=== PATIENT | male | born 1940 | race Caucasian/White ===

== ENCOUNTER 2023-11-16 09:57 | Emergency (ER) | payer OTHER, SELFPAY ==
[2023-11-16 10:18] VITALS: BP 144/63
--- NOTE | 2023-11-16 11:11 | ED.MUSCINJ ---
HPI-Injury
General
Chief Complaint: Fall
Source: patient
Exam Limitations: none
Time Seen by Provider: 11/16/23 11:03
History of Present Illness-Injury
Initial Injury comments:
83-year-old male on aspirin presents after a fall he sustained 3 days ago. He got knocked over by the dog fell awkwardly. His right ankle twisted. He complains of pain and swelling to the ankle and radiates up to the knee. He did hit his head.
No neck pain. No current headache. No loss of consciousness.
Past History
Past History
ED Past Medical History: Asthma, CAD, Cancer (Bladder), HTN, IDDM, [place], Hypothyroidism and Other (Diverticulitis)
ED Past Surgical History: Cardiac (Stent) and Other (Hernia repair, bowel resection)
Social History
Tobacco: Former smoker
Alcohol: Occasional
Drug: None
Personal:
Living: with family
Employment: Retired
Family History
Family History: Other; Negative Early CAD
Phy Exam
Physical Exam
Physical Exam:
General: Well-appearing male no acute respiratory distress
HEENT: Normocephalic atraumatic
Musculoskeletal exam: Right ankle swollen ecchymotic and tender over the medial and lateral aspect of the ankle. The knee is nontender.
Neurologic exam: Alert and no facial asymmetry conversing appropriately
Injury Course
Orders/Labs/Results
Orders:
Orders
11/16/23 10:32
CT Head W/o Iv Contrast Urgent
Comment:
Reason For Exam: Head injury
11/16/23 11:11
CR Ankle - Right Min 3 Views * Urgent
Comment:
Reason For Exam: fall, pain
CR Leg Tibia/fibula Right 2 Vw Urgent
Comment:
Reason For Exam: fall
MDM/Problems Addressed
Differential Diagnosis Includes:
Fall hitting head. CT of head pending to evaluate for skull fracture or intracranial hemorrhage. Pain to the right ankle. Consider fracture versus sprain versus dislocation by x-ray of the right ankle and leg pending
*Critical Care Note
Total Time (30-74mins, 75-104mins- exclusive of procedures): Not Applicable
Update Note
Update Note:
X-rays of the right ankle and leg demonstrated nondisplaced distal fibular fracture. Patient will be placed in a tall orthopedic boot and will be referred to orthopedics for further evaluation
ED Attending Note
-
Portions of this chart may have been created with voice recognition software.� Occasional wrong word or��sound alike� substitutions may have occurred due to the inherent limitations of voice recognition software.
Discharge Plan
Departure
Patient Disposition: Home (Routine Discharge)
Date of Disposition: 11/16/23
Time of Disposition: 12:56
Patient with high blood pressure during this ER visit?: No
Discharge Problem:
Fracture of distal end of fibula
Instructions: Muscle and bone pain - Discharge instructions
Prescriptions:
No Action
furosemide 40 MG tablet
40 mg PO DAILY
albuterol sulfate 1 PUFF HFA aerosol inhaler
2 puff inhalation R QIDPRN PRN (Reason: sob)
atorvastatin 20 MG tablet
60 mg PO HS
montelukast 10 MG tablet
10 mg PO HS
cholecalciferol (vitamin D3) 2,000 UNITS tablet
2,000 units PO DAILY
azithromycin 250 MG tablet
250 mg PO MOWEFR
levothyroxine 125 MCG tablet
125 mcg PO MOTUWETHFR@06
nitroglycerin 0.4 MG tablet, sublingual
0.4 mg sublingual [id number] PRN (Reason: chest pain)
pantoprazole 40 MG tablet,delayed release (DR/EC)
40 mg PO DAILY
amlodipine 5 mg Tablet
5 mg PO HS
aspirin 81 mg Capsule
81 mg PO DAILY
prednisone 5 MG tablet
5 mg PO Q48H
Rx Instructions:
resume the day after taper is finished
fluticasone propion-salmeterol 500-50 mcg/dose blister with device
1 inh INHALATION R BID
potassium chloride 10 mEq tablet extended release
10 meq PO BID
ranolazine 500 mg tablet extended release 12 hr
1,000 mg PO BID
isosorbide mononitrate 120 mg tablet extended release 24 hr
120 mg PO DAILY
Referrals:
Russ Pinzon MD [Active] -
Myke Nelson DO [Family Provider] -
Activity Restrictions/Additional Instructions:
Keep boot on at all times. Elevate for swelling. Use Tylenol for pain. Follow-up with orthopedics next fillable appointment
Interventions
Interventions:
ED-Musculoskeletal Assessment Last Done: 11/16/23 11:10
ED- Neurological Assessment Last Done: 11/16/23 11:10
Discharge Date and Time
Print Language: WOLOF
== END 2023-11-16 13:47 | disposition home or self-care (01) ==
LOC: EMR 09:57
PROVIDERS: EMERGENCY PHYSICIAN Emergency Medicine; FAMILY PHYSICIAN Family Medicine
DX: S82.831A Other fracture of upper and lower end of right fibula, initial encounter for closed fracture (principal); W54.1XXA Struck by dog, initial encounter; W19.XXXA Unspecified fall, initial encounter; E03.9 Hypothyroidism, unspecified; E11.9 Type 2 diabetes mellitus without complications; I25.10 Atherosclerotic heart disease of native coronary artery without angina pectoris; J45.909 Unspecified asthma, uncomplicated; I10 Essential (primary) hypertension; Z87.891 Personal history of nicotine dependence; Z95.5 Presence of coronary angioplasty implant and graft; Z79.4 Long term (current) use of insulin
CPT/HCPCS: 99284; 70450; 73590; 73610

== ENCOUNTER 2024-01-28 01:27 | Inpatient (IN) | payer OTHER, SELFPAY ==
[2024-01-27] VITALS (7 sets, daily range): BP systolic 117–162; BP diastolic 53–96
[2024-01-27] MEDS: NSS 1000 IV (19:45)
[2024-01-27 20:15] LABS: % Basophils 0.3 % (0-2); % Immature Granulocytes 0.6 % (0-0.5); % Lymphocytes 7.3 % (20.5-51.1); % Monocytes 10.1 % (1.7-9.3); % Neutrophils 80.7 % (42.2-75.2); Absolute Eosinophils 0.1 10^3/uL (0-0.7); Absolute Immature Granulocytes 0.1 10^3/uL (0-0.05); Absolute Lymphocytes 0.9 10^3/uL (1.2-3.4); Absolute Monocytes 1.3 10^3/uL (0.1-0.6); Absolute Neutrophils 10.1 10^3/uL (1.4-6.5); Hematocrit 33.3 % (39.0-52.0); Hemoglobin 11.6 g/dL (13.0-18.0); Mean Corp Hgb Conc. 34.8 g/dL (33.0-37.0); Mean Corpuscular Hgb 32.2 pg (27.0-31.0); Mean Corpuscular Volume 92.5 fL (80.0-94.0); Mean Platelet Volume 8.9 fL (7.4-10.4); Nucleated Red Blood Cells % 0 % (-); Platelet Count 224 10^3/uL (130-400); Red Cell Dist. Width 14.6 % (11.5-14.5); White Blood Cell Count 12.5 10^3/uL (4.8-10.8)
[2024-01-27 20:28] LABS: ALT (SGPT) 38 U/L (0-50); AST (SGOT) 35 U/L (17-59); Albumin 3.4 g/dl (3.5-5.0); Alkaline Phosphatase 75 U/L (38-126); Blood Urea Nitrogen 16 mg/dl (9-20); Calcium 8.8 mg/dl (8.4-10.2); Carbon Dioxide 24 mmol/L (22-30); Chloride 93 mmol/L (98-107); Glucose 168 mg/dl (70-99); Potassium 4.2 mmol/L (3.5-5.1); Sodium 129 mmol/L (135-145); Total Bilirubin 1.2 mg/dl (0.2-1.3); Total Protein 6.5 g/dl (6.3-8.2); eGFR > 60.00
[2024-01-27 20:30] LABS: COVID-19 Antigen Negative (Negative)
[2024-01-27 20:36] LABS: NT-proBNP 2100 pg/ml
[2024-01-27 22:30] LABS: Urine Albumin Trace (Neg - Trace); Urine Bilirubin 1+ (Negative); Urine Color Yellow; Urine Glucose Negative (Negative); Urine Ketone Negative (Negative); Urine Leukocyte Trace (Negative); Urine Nitrite Negative (Negative); Urine Occult Blood Trace (Negative); Urine Urobilinogen 3+ (Neg - 1+)
--- NOTE | 2024-01-27 22:40 | ED.GENMED ---
History of Present Illness
General
Chief Complaint: Weakness
Source: patient
Exam Limitations: none
Time Seen by Provider: 01/27/24 19:53
Nursing documentation reviewed up to this point in time: agreed with
History of Present Illness
History of Present Illness:
Patient to ED with complaint of weakness. States he started feeling weak yesterday. Slept most of day. Reports loss of appetite. Symptoms continued today. He reports sliding off of his bed onto the floor. Denies hitting his head. Brought to
ED by family.
Past History
Past History
ED Past Medical History: Asthma, CAD, Cancer (Bladder), HTN, IDDM, [place], Hypothyroidism and Other (Diverticulitis)
ED Past Surgical History: Cardiac (Stent) and Other (Hernia repair, bowel resection)
Social History
Tobacco: Former smoker
Alcohol: Occasional
Drug: None
Personal:
Living: with family
Employment: Retired
Family History
Family History: Other; Negative Early CAD
Review of Systems
Review of Systems
Allergies reviewed?: Yes
All Other Systems: ROS reviewed and negative except as documented in HPI and ROS
Constitutional: Reports fatigue and chills
Respiratory: Reports cough and trouble breathing
Cardiac: Reports no symptoms
ABD/GI: Reports no symptoms
: Reports no symptoms
Musculoskeletal: Reports no symptoms
Skin: Reports no symptoms
Neurological: Reports weakness
Psychiatric: Reports no symptoms
Phy Exam
General Physical Exam
General Presentation: mild distress
General age: appears stated age
General Skin: warm and dry
General Habitus: normal
General Mental: alert
Cardiovascular Exam
Cardiovascular Exam: regular rate/rhythm and no edema
Pulmonary Exam
Cough: coarse cough
Breath Sounds: Rhonchi: generalized
Gastrointestinal Exam
Gastrointestinal Exam: normal bowel sounds and non tender
Musculoskeletal Exam
Musculoskeletal Exam: full ROM and neuro vasc intact
Skin Exam
Skin Exam: normal color, warm/dry and no rash
Psychiatric Exam
Psychiatric Exam: normal mood/affect
Course
Orders/Labs/Results
Orders:
Orders
01/27/24 20:03
COVID-19 Antigen Urgent
Source: Nasal Swab
Complete Blood Count/With Diff Urgent
Comprehensive Metabolic Panel Urgent
Influenza A+B Rapid Molecular Urgent
BILLIE Source: Nasal Swab
Specimen Description:
01/27/24 20:04
BNP [NT-proBNP] Urgent
01/27/24 20:32
CR Chest - 2 Views Urgent
Comment:
Reason For Exam: productive cough, weakness
01/27/24 21:11
0.9% Sodium Chloride 1000 ml [Nss] 1,000 ml IV BOLUS
01/27/24 22:20
Urinalysis Reflex To Culture Urgent
Date Specimen was Collected: 01/27/24
Time Specimen was Collected: 20:33
Urine Microscopic Reflex Cult Urgent
01/27/24 22:46
Azithromycin [Zithromax] 500 mg PO NOW STA
CefTRIAXone [Rocephin] 1,000 mg IV NOW STA
01/28/24 00:12
Admit/Transfer Patient As Directed
Co-Sign Provider:
Level of Care: Inpatient admission
Assign to:: Medical/Surgical
Physician / Group: hospitalist
Diagnosis: communicty acquired pneumonia
Reason for Hospitalization: pneumonia
Expected length of stay greater than two midnights?: Yes
ELOS- Estimated Length of Stay in days: 2
I certify the patient meets the requirements for IP care: Yes
PRN Pain Medication Management As Directed
May give lesser potent ordered pain med per pt: Yes
preference::
Protocol:: Medication orders for pain may be administered in a
manner that supports deferring to patient preference
when the pt is:
- Requesting an ordered lesser potent pain medication.
Least to most potent pain medications are defined
as: acetaminophen < NSAID < tramadol < opioids
(morphine, oxycodone, hydromorphone).
- Requesting a lesser dose of the same medication IF
ORDERED.
- Requesting a less intrusive route of administration
if both routes are prescribed by the provider (PO <
IV).
01/28/24 00:13
Code Status As Directed
Resuscitation Status: Full Code
01/28/24 01:30
Acetaminophen [Tylenol] 650 mg PO Q4HPRN PRN
Albuterol [ProAIR HFA INHALER] 2 puff INH R QIDPRN PRN
01/28/24 01:30
Activity As Directed
Activity Level: Out of Bed-Early Mobility
Intake/ Output As Directed
Frequency: Per unit guidelines
Orthostatic Vital Signs As Directed
Orthostatic VS Frequency: Daily
Vital Signs As Directed
Frequency: Per unit guidelines
Weight As Directed
Frequency: Once
Comment: on admission
Pulse Ox/cont/shift [RESP] Routine
Quantity: 1
Pt Eval And Treat Routine
Activity Level: With Assistance
DX Deep Vein Thrombosis Video Routine
01/28/24 03:26
Legionella Urinary Antigen Routine
BILLIE Source: Urine
Specimen Description:
01/28/24 Breakfast
Regular
At Your Request: Limited Participation
Fluid Restriction: 1200 mL/day (40 oz)
Levothyroxine [Synthroid] 125 mcg PO MOTUWETHFR@06
01/28/24 06:37
Basic Metabolic Panel IN AM
Complete Blood Count/No Diff IN AM
TSH Reflex To Free T4 IN AM
01/28/24 08:00
Aspirin Chewable [Low Strength Aspirin] 81 mg PO DAILY
Fluticasone/Salmeterol 230/21 [Advair Hfa 230/21 Mcg Inhaler] 2 puff INH R BID
ISOSORBIDE MONOnitrate ER [Imdur (Extended Release)] 120 mg PO DAILY
Pantoprazole [Protonix] 40 mg PO DAILY
Ranolazine Extended Release [Ranexa Extended Release] 1,000 mg PO BID
01/28/24 18:00
Enoxaparin Sodium [Lovenox] 40 mg SC QPM
01/28/24 22:00
Amlodipine [Norvasc] 5 mg PO HS
Atorvastatin [Lipitor] 60 mg PO HS
Azithromycin [Zithromax] 500 mg PO DAILY
CefTRIAXone [Rocephin] 1,000 mg IV Q24H
Montelukast Sodium [Singulair] 10 mg PO HS
01/29/24 08:00
Prednisone [Deltasone] 5 mg PO Q48H
Abnormal Lab Results
01/27/24 01/27/24
20:03 22:20
WBC 12.5 H 10^3/uL
(4.8-10.8)
RBC 3.60 L 10^6/uL
(4.70-6.10)
Hgb 11.6 L g/dL
(13.0-18.0)
Hct 33.3 L %
(39.0-52.0)
MCH 32.2 H pg
(27.0-31.0)
RDW 14.6 H %
(11.5-14.5)
Abs Immat Gran (auto) 0.1 H 10^3/uL
(0-0.05)
Absolute Neuts (auto) 10.1 H 10^3/uL
(1.4-6.5)
Absolute Lymphs (auto) 0.9 L 10^3/uL
(1.2-3.4)
Absolute Monos (auto) 1.3 H 10^3/uL
(0.1-0.6)
Immature Gran % 0.6 H %
(0-0.5)
Neutrophils % 80.7 H %
(42.2-75.2)
Lymphocytes % 7.3 L %
(20.5-51.1)
Monocytes % 10.1 H %
(1.7-9.3)
Sodium 129 L mmol/L
(135-145)
Chloride 93 L mmol/L
(98-107)
Glucose 168 H mg/dl
(70-99)
Albumin 3.4 L g/dl
(3.5-5.0)
Ur Occult Blood Reflex Trace A
(Negative)
Urine Bilirubin 1+ A
(Negative)
Urine Urobilinogen 3+ A
(Neg - 1+)
Leukocyte Esterase Rfl Trace A
(Negative)
Urine RBC 21-25 A /HPF
(0-2)
Urine Bacteria (Reflex) Few A
(Negative)
01/27/24 20:03
01/27/24 20:03
Vital Signs
Initial and Last Documented VS:
Initial Vital Signs
Temp Pulse Resp BP Pulse Ox
98.2 F 103 20 145/65 99
01/27/24 19:41 01/27/24 19:41 01/27/24 19:41 01/27/24 19:41 01/27/24 19:41
Last Documented Vital Signs
Temp Pulse Resp BP Pulse Ox
98.0 F 72 18 132/66 96
01/28/24 14:42 01/28/24 14:42 01/28/24 14:42 01/28/24 14:42 01/28/24 14:42
*Radiology
Radiology exam reviewed: radiology read reviewed
*Pulse Oximetry
Patient hypoxic: no
*Critical Care Note
Total Time (30-74mins, 75-104mins- exclusive of procedures): Not Applicable
ED Attending Note
-
Portions of this chart may have been created with voice recognition software.� Occasional wrong word or��sound alike� substitutions may have occurred due to the inherent limitations of voice recognition software.
Discharge Plan
Departure
Patient Disposition: Admit
Date of Disposition: 01/27/24
Time of Disposition: 22:48
Presentation/result/management discussed w/ accepting MD/DO: Hospitalist
Condition: Fair
Covid-19: Not Applicable
Discharge Problem:
Pneumonia
Interventions
Interventions:
*Risk Screen - Suicide Last Done: 01/27/24 19:41
*General Assessment Last Done: 01/27/24 20:08
*Neglect/Abuse Screening Last Done: 01/27/24 19:41
ED- Fall Risk Assessment Last Done: 01/27/24 20:00
*ED COVID-19 Vaccine History Last Done: 01/27/24 20:08
*Nursing Disposition Last Done: 01/28/24 01:42
ED- Cardiac Assessment Last Done: 01/28/24 00:28
ED- Neurological Assessment Last Done: 01/28/24 00:28
ED- Pulmonary Assessment Last Done: 01/28/24 00:28
Discharge Date and Time
Discharge Date/Time: 01/28/24 01:44
[2024-01-27 22:45] LABS: Urine Bacteria Few (Negative); Urine Red Blood Cell 21-25 /HPF (0-2); Urine White Cell 0-2 /HPF (0-5)
[2024-01-27 22:50] LABS: Urine Character Clear (Clear)
[2024-01-27] MEDS: ZITHROMAX 500 MG PO (23:03)
[2024-01-27] MEDS: ROCEPHIN 1000 MG IV (23:04)
--- NOTE | 2024-01-27 23:59 | HPS.HSE ---
Family Physician
-
Family Physician: Myke Nelson
Chief Complaint
-
Weakness lethargy and cough
History of Present Illness
This is an 83-year-old male who has a past medical history that is significant for COPD, hypertension, CHF with preserved EF, status post pacemaker, CAD status post HI, asthma who presents to the emergency department with approximately 2 days of
somnolence lethargy weakness loss of appetite and a productive cough.
Patient actually stated that he had cough and some respiratory difficulties about a week ago after suffering a tib-fib fracture which resulted in decreased ambulatory capacity compared to prior.. He took some Mucinex for some time and resulted in
scant hemoptysis which she did not stop the Mucinex. He denies having fevers or chills. He denies any known sick contacts. He is on chronic suppressive azithromycin but is unclear to me whether it is for anti-inflammatory or antiinfectious use.
He reports ongoing productive cough. But mostly he reports weakness tiredness some lightheadedness and dizziness. He denies any nausea or vomiting. He denies having diarrhea. He has no recent travels. Denies sick contacts and denies any recent
hospitalizations.
On arrival in ED temperature was 90.2, blood pressure was 130/60, pulse was 79 and oxygen saturation was 97% on room air. His chest x-ray shows a large left lower lobe consolidation with parapneumonic effusion. Leukocytosis to 12,000 with normal
hemoglobin and platelet counts. Chemistries notable for sodium of 129 with normal BUN and creatinine. UA with blood but otherwise unremarkable. COVID test was negative. Influenza was negative.
Medical History
Past Medical History
Past Medical History: Reports Asthma, CAD (Status post HI and PCI), CHF (Preserved EF), HTN and Hypothyroidism
Past Surgical History: Reports Other
Social History
Tobacco: Former Smoker
Alcohol: None
Drug: None
Personal:
Living: With Family
Employment: Retired
Family History
Family History: Not pertinent
Allergies / Home Medications
Allergies reflects when Allergies were last updated in [email or web address].
Home Medications with original date entered in [email or web address]
Allergy/Medication List:
Allergies
Allergy/AdvReac Type Severity Reaction Status Date / Time
mold Allergy BREATHING/A Verified 01/27/24 19:44
STHMA
pollen extracts Allergy NASAL Verified 01/27/24 19:44
SYMPTOMS/BREATHING/ASTHMA
Home Medications
albuterol sulfate 90 mcg/actuation aerosol inhaler 2 puff inhalation R QIDPRN PRN sob 10/31/18
furosemide 40 mg tablet 40 mg PO DAILY Fluid retention/Swelling 10/31/18
atorvastatin 20 mg tablet 20 mg PO HS High cholesterol 08/29/19
azithromycin 250 mg tablet 250 mg PO MOWEFR Infection 08/29/19
levothyroxine 125 mcg tablet 125 mcg PO MOTUWETHFR@06 Thyroid 08/29/19
montelukast 10 mg tablet 10 mg PO HS Allergies 08/29/19
pantoprazole 40 mg tablet,delayed release 40 mg PO DAILY Gastrointestinal issue 10/31/19
amlodipine 5 mg tablet 5 mg PO HS Blood Pressure 02/19/22
aspirin 81 mg capsule 81 mg PO DAILY Blood Clot Prevention/Tx 02/19/22
fluticasone 500 mcg-salmeterol 50 mcg/dose blistr powdr for inhalation 1 inh inhalation R BID Lung/Breathing Issues 11/16/23
isosorbide mononitrate 120 mg tablet,extended release 24 hr 120 mg PO DAILY Blood Pressure 11/16/23
potassium chloride 10 mEq tablet,extended release 10 meq PO BID Electrolyte Repletion 11/16/23
ranolazine 500 mg tablet,extended release,12 hr 1,000 mg PO BID Heart Disease/Condition 11/16/23
atorvastatin 40 mg tablet 40 mg PO HS 01/27/24
cholecalciferol (vitamin D3) 50 mcg (2,000 unit) tablet 50 mcg PO DAILY 01/27/24
prednisone 10 mg tablet 5 mg PO Q48H 01/27/24
Review of Systems
-
Constitutional: Reports Fatigue
EENT: Reports No Symptoms
Respiratory: Reports Cough
Cardiac: Reports No Symptoms
Abdomen/GI: Reports No Symptoms
: Reports No Symptoms
Musculoskeletal: Reports No Symptoms
Skin: Reports No Symptoms
Neurological: Reports Dizzy and Weakness
Endocrine: Reports No Symptoms
Hematologic/Lymphatic: Reports No Symptoms
Psych: Reports No Symptoms
Physical Exam
Vital Signs
Vital Signs
Temp Pulse Resp BP Pulse Ox
98.2 F 79 20 162/56 97
01/27/24 19:41 01/27/24 22:45 01/27/24 22:45 01/27/24 22:00 01/27/24 22:45
Physical Exam
General: No Apparent Distress, Comfortable and Conversant
HEENT: NormoCephalic, Anicteric, Moist mucous membranes, Atraumatic and PERRLA
Respiratory: Wheezes and Crackles
Cardiac: S1/S2 and Regular Rhythm
Breast: Deferred by me
GI: Soft, Non Tender and Normal Bowel Sounds
Rectal: Deferred by Provider
Genito-urinary: Deferred by me
Musculoskeletal: No Clubbing, No Cyanosis and Edema, Left Lower Extremity (1+ ankle edema)
Skin: Warm
Neuro: AO x 3
Hematologic/Lymphatic: No Lymphadenopathy
Psych: Calm
Laboratory Results
-
01/27/24 20:03
01/27/24 20:03
Laboratory Results
Total Bilirubin 1.2 mg/dl (0.2-1.3) 01/27/24 20:03
AST 35 U/L (17-59) 01/27/24 20:03
ALT 38 U/L (0-50) 01/27/24 20:03
Alkaline Phosphatase 75 U/L (38-126) 01/27/24 20:03
Data Reviewed
-
Diagnostic Radiology: Image Personally Visualized and interpreted and Report Reviewed by me
Lab Data: Labs Reviewed by me
Old Records: Reviewed
Impression/Plan
-
IMPRESSION:
23-year-old with history of asthma, CHF with preserved EF, CAD status post PCI, hypothyroid, status post pacemaker who presents to the emergency department with 2 days of lethargy weakness and was found to have a left lower lobe consolidation with
prominent pneumonic effusion, leukocytosis and a low sodium of 139. He is afebrile hemodynamically stable and otherwise has no oxygen requirement. COVID test is negative. Influenza test negative suspect CAP vs atypical pneumonia at this time.
PLAN:
1.PNA - Complicated by parapneumonic effusion and lethargy
- admit to med/surg
- legionella ag
- IV ceftriaxone and azithromycin (was on azithromycin M/W/F at home)
- minimal respiratory compromise, continue his asthma regimen with duonebs, prednisone 5 q 48, singulair
- serial examination, ambulating sats to help determine degree of hypoxic contribution to weakness.
2. Hyponatremia - Moderate hyponatremia. PNA and on lasix. Poor PO. Looks dry on exam. No pulm edema. Chronic Left ankle 1+ edema.
- hold diuretics for now
- give 500 ml bolus and eval
- check tsh, continue levothyroxine
- orthostatic v/s
3. CAD
- continue aspirin, statin and imdur and ranolazine
4. CHF - dry on exam
- holding lasix for now
- continue imdur. Amlodipine with hold parameters
DVT PPX - lovenox sq
Code status - Full Code
[2024-01-28] VITALS: BP 132/52
[2024-01-28 01:29] VITALS: BMI 23.6
[2024-01-28 01:30] VITALS: BP 130/60
[2024-01-28 01:38] VITALS: BMI 23.6
--- NOTE | 2024-01-28 02:02 | PTCARENOTE ---
Received pt from ED @ 0130. Pt [id number], VSS. PT ambulated from stretcher to bed. Oriented to room, call oswald and plan of care.
[2024-01-28] MEDS: SYNTHROID 125 MCG PO (05:21)
[2024-01-28 05:35] VITALS: BMI 23.1
[2024-01-28 07:00] VITALS: BP 123/60
[2024-01-28 08:16] LABS: Hematocrit 29.9 % (39.0-52.0); Hemoglobin 10.3 g/dL (13.0-18.0); Mean Corp Hgb Conc. 34.4 g/dL (33.0-37.0); Mean Corpuscular Hgb 33.1 pg (27.0-31.0); Mean Corpuscular Volume 96.1 fL (80.0-94.0); Mean Platelet Volume 9.2 fL (7.4-10.4); Platelet Count 200 10^3/uL (130-400); Red Blood Cell Count 3.11 10^6/uL (4.70-6.10); Red Cell Dist. Width 14.7 % (11.5-14.5); White Blood Cell Count 9.5 10^3/uL (4.8-10.8)
[2024-01-28 08:49] LABS: Blood Urea Nitrogen 12 mg/dl (9-20); Carbon Dioxide 24 mmol/L (22-30); Chloride 99 mmol/L (98-107); Estimated Creatinine Clearance 62 ml/min; Glucose 113 mg/dl (70-99); Potassium 3.4 mmol/L (3.5-5.1); Sodium 133 mmol/L (135-145); eGFR > 60.00
[2024-01-28] MEDS: PROTONIX 40 MG PO (08:58)
[2024-01-28] MEDS: IMDUR (EXTENDED RELEASE) 120 MG PO (08:58)
[2024-01-28] MEDS: LOW STRENGTH ASPIRIN 81 MG PO (08:58)
[2024-01-28] MEDS: RANEXA EXTENDED RELEASE 1000 MG PO (08:58)
[2024-01-28 09:52] VITALS: BP 150/66; PULSE 81; O2SAT 97
--- NOTE | 2024-01-28 10:42 | W.PN.HOSP.TC ---
Today's Communication/Plan
-
.
Assessment / Plan
Assessment / Plan
83 M PMHx asthma, HFpEF, CAD/NE, hypothyroidism, COPD, chronic respiratory prophylaxis on azithromycin
1. Pneumonia/Parapneumonic Effusion
- On chronic prophylaxis; Urinary Ags for atypicals
- Sputum Cx
- Patient started on IV Ceftriaxone (Day 1)
- Serial examinations/ambulating SaO2s
- Review old hospitalization records
- Consider Pulm Consult
2. Hyponatremia
- 133 today, up from 129 yesterday
- s/p 500 mL bolus NS yesterday
- Continue to monitor BMP
3. CAD
- Continue home meds: ASA, atorvastatin, ranolazine
4. HFpEF
- Hold Lasix
- Continue Amlodipine, Isosorbide Mononitrate
- Holding parameters
5. HTN
- Continue Home Meds
6. DVT PPx
- Lovenox
Full Code
Anticipated Discharge: 24 - 48 hours
Subjective/Interval History
-
Date of Service: January 28, 2024
No interval improvement this morning.
Pt states that he has been feeling under the weather for some weeks. Then recently had a mechanical fall (tripped over dog) and hurt his left ankle, which he feels also led to him becoming deconditioned. Approximately 1-1.5 weeks ago started having
coughing that was different from his chronic bouts of coughing. Episodes are described as dry hacking coughing for the initial period followed by cough productive of yellowish sputum. Denies fevers/chills.
Pt endorses a history of chronic pneumonias and states that once needed to have fluid drained from lung, though he is unsure of dates or specific diagnoses.
Objective Data
-
Labs:
Laboratory Results
01/28/24
06:37
WBC 9.5
Hgb 10.3 L
Hct 29.9 L
Plt Count 200
Sodium 133 L
Potassium 3.4 L
Chloride 99
Carbon Dioxide 24
BUN 12
Creatinine 0.9
Glucose 113 H
Calcium 8.0 L
Vital Signs:
Vital Signs
Temp Pulse Resp BP Pulse Ox
98.1 F 77 20 123/60 96
01/28/24 07:00 01/28/24 07:00 01/28/24 07:00 01/28/24 07:00 01/28/24 07:00
I&O
01/27/24 01/28/24 01/29/24
06:59 06:59 06:59
Intake Total 240 / 240
Output Total 600 / 600
Balance -360 / -360
Review of Systems
-
History Source: Patient
Constitutional: Reports No Symptoms and Fatigue
EENT: Reports No Symptoms Reported
Respiratory: Reports Cough (productive of yellow sputum) and Trouble Breathing
Cardiac: Reports Other (recent subjective deconditioning)
Abdomen/GI: Reports No Symptoms
Musculoskeletal: Reports Joint Pain (L ankle)
Neuro: Reports No Symptoms
Physical Exam
-
General: Well Developed, Well Nourished, Conversant and Other (appears fatigued)
HEENT: Normocephalic and Atraumatic
Respiratory: Wheezes and Crackles
Cardiac: Regular Rhythm and S1/S2
GI: Soft and Nontender
Musculoskeletal: No Edema
Skin: Warm and Dry
Neuro: Awake, Alert and Oriented
Psych: Calm
Data Reviewed
-
Diagnostic Radiology: Image personally visualized and interpreted, Report Reviewed by me and Discussed with Patient
Labs: Labs Reviewed by me and Discussed with Patient
--- NOTE | 2024-01-28 11:09 | W.PN.UPDATE ---
Addendum entered and electronically signed by Kirt Rodriguez MD 01/28/24 12:50:
Total time spent on d/c = 38 min. This included today's physical exam, progress note, review of laboratory and diagnostic data, preparation of discharge documents and prescriptions, and discussions about the pt's hospital course and discharge plan
with the patient and other medical concierge involved in the patient's care.
Addendum entered and electronically signed by Kirt Rodriguez MD 01/28/24 12:45:
Procalcitonin negative. Current bacterial infection is unlikely. That being said, with the degree of consolidation on chest x-ray (as read by the radiologist) will give 1 week of Augmentin and doxycycline to prevent superimposed bacterial
pneumonia that could happen in the near future. Patient should follow-up with pulmonary within 1 to 2 weeks.
Original Note:
Update Note
Progress Note Update
I saw and evaluated the patient. I reviewed the resident�s note and agree with findings and plan as documented in the resident�s note.
No new complaints.
Gen: NAD, AAOx3.
Eyes: EOMI, PERRLA, no scleral icterus.
Neck: supple.
CV: RRR, +S1/S2, no m/r/g.
Resp: dec BS L base, rhonchi L upper lung field
Abd: +BS, soft, NT, ND
Skin: No rashes. trace LLE edema.
Neuro: CN 2-12 intact, non-focal.
Psych: Normal mood and affect.
CXR:
1. Large dense left lower lobe basilar airspace consolidation suggesting RECURRENT LEFT LOWER LOBE PNEUMONIA with an adjacent SMALL LEFT PARAPNEUMONIC PLEURAL EFFUSION.
2. Mild cardiomegaly.
3. Left-sided dual-chamber cardiac pacemaker in place.
4. Multiple chronic healed right posterior rib fractures.
Acute metabolic encephalopathy due to LLL PNA:
-cont Rocephin/Azithro
-legionella/Flu/COVID NEG
-afebrile, minimal leukocytosis has resolved
-saturating well on RA
-check procal
Hyponatremia:
-mild, improved with IVFs
-cont to hold Lasix
-initiate FR
Chronic HFpEF:
-Lasix on hold as pt dry on admission
-s/p 1000cc NS bolus
-Would not restart Lasix on discharge
-FR
Other problems:
Hypothyroidism: Cont Levoxyl
CAD: cont ASA/statin/Ranexa
Hypokalemia: 40meq K
Essential HTN: Cont Norvasc/Imdur
FULL/Lovenox
Dispo: d/c later today
--- NOTE | 2024-01-28 11:31 | CM ---
Pt seen bedside. Pt lives w/ spouse in a 2STH-2 steps to enter
Independent at baseline, no devices needed for ambulating. Does have chair lift in the home
Denies SNF hx, participated in OP rehab at after heart attack
Per pt he walks a mile per day
Denies VN/PT in the past
Address, point of contact and insurance verified
PCP: Dr. Myke Nelson
Pharmacy: [facility]
PT recommended home PT w/ progression to OP therapy
Discussed PT recommendation. Per pt he has a family friend that is a PT that will conduct home therapy
Cont. IV abx (day 1)
Per pt, spouse will transport at d/c
Plan: Home w/ private home PT through family
[2024-01-28] MEDS: KCL 40 MEQ PO (11:49)
[2024-01-28 11:56] LABS: Magnesium 1.8 mg/dl (1.6-2.3)
[2024-01-28 12:10] LABS: Procalcitonin 0.12 ng/ml (0.0-0.25)
[2024-01-28] MEDS: FLUAD (65 yr+) 2024-2025 FORMULA 0.5 ML IM (14:27)
[2024-01-28 14:42] VITALS: BP 132/66
--- NOTE | 2024-01-29 09:17 | W.DCSUMMARY ---
Addendum entered and electronically signed by Kirt Rodriguez MD 01/29/24 12:07:
Read, reviewed, and agree. See same day progress note for additional details.
Original Note:
Discharge Summary
Discharge Data
Date of Admission: 01/28/24
Date of Discharge: 01/29/24
-
Pending Results: No
Hospital Course
Donald Aguirre is an 83 year old male with a past medical history of COPD, hypertension, congestive heart failure with preserved ejection fraction, coronary artery disease status post myocardial infarction, asthma, and chronic suppresive
azithromycin therapy who presented to the Emergency Department at [facility] on the evening of January 27, 2024 with approximately 2 days of lethargy, generalized weakness, loss of appetite and worse than normal productive cough.
The patient noted that although he usually suffers from chronic cough that is usually productive of sputum, that he had been having increased cough and respiratory difficulties for approximately 1 week prior to arrival. He noted around that time he
had a mechanical fall when he tripped over a dog that he was watching for a friend. This resulted in a tib-fib fracture, ultimately leaving him with decreased ambulatory capacity. In the preceding two days prior to arrival, the patient in this
deconditioned state began to feel generalized weakness, lethargy, loss of appetite, and noted sleeping more than usual. This prompted his visit to the Emergency department.
On arrival to the emergency department, the patient was afebrile, normotensive, and was saturating at 97% on room air. His physical was normal except for wheezing and crackles diffusely on auscultation of the lungs. Laboratory studies showed an
elevated white blood cell count of 12,000 and hyponatremia at 129 amidst normal renal function. A chest X-ray was obtained which exhibited a large left lower lobe consolidation with parapneumonic effusion. The patient was admitted to [facility] that evening around midnight for suspicion of pneumonia complicated by a parapneumonic effusion.
The patient was started on intravenous antibiotics (Rocephin, Azithromycin). Since the paient exhibited minimal respiratory compromise and was saturating well on room air, he was kept on his home regimen for asthma and no supplemental oxygen was
utilized. Early workup included negative screening for Legionella antigen, influenza and COVID. Since the patient was initially hyponatremic and appeared dry on examination, LASIX was held and the patient was given a bolus of 1 liter of normal
saline.
The next morning, the patient continued to have minimal clinical compromise and laboratory testing showed the minimally elevated white count had resolved. His sodium level was also improved. A procalcitonin was checked which was negative. Given the
patient's clinical improvement and decreasing concern for overt infection, the patient was discharged to home on January 29, 2024 to continue treatment on an outpatient basis with Amoxicillin Clavulanate.
Discharge Plan
-
Patient Disposition: Home (Routine Discharge)
Discharge Diagnosis/Procedures: Left lower lobe pneumonia
Condition: Good
Diet: Low Fat, Low Cholesterol and Other diet
Additional Diets: Fluid restrict to 1400 cc/day
Activity: As tolerated
Driving Restrictions: As prior to admission
Blood Work: CBC and BMP in 1 week, script from PCP
Specialty Instructions: Weigh Daily- Call MD for wt gain/loss 3 lbs overnight/5 lbs in 1 week
Referrals:
Myke Nelson DO [Family Provider] - in less than 1 week
Prescriptions:
New
amoxicillin-pot clavulanate 875-125 mg tablet
1 tab PO BID Qty: 14 0RF
doxycycline hyclate 100 mg tablet
100 mg PO BID Qty: 14 0RF
Continued
furosemide 40 MG tablet
40 mg PO DAILY
albuterol sulfate 1 PUFF HFA aerosol inhaler
2 puff inhalation R QIDPRN PRN (Reason: sob)
atorvastatin 20 MG tablet
20 mg PO HS
Rx Instructions:
taken w/ 40mg = 60mg
montelukast 10 MG tablet
10 mg PO HS
azithromycin 250 MG tablet
250 mg PO MOWEFR
levothyroxine 125 MCG tablet
125 mcg PO MOTUWETHFR@06
pantoprazole 40 MG tablet,delayed release (DR/EC)
40 mg PO DAILY
amlodipine 5 mg Tablet
5 mg PO HS
aspirin 81 mg Capsule
81 mg PO DAILY
fluticasone propion-salmeterol 500-50 mcg/dose blister with device
1 inh INHALATION R BID
potassium chloride 10 mEq tablet extended release
10 meq PO BID
ranolazine 500 mg tablet extended release 12 hr
1,000 mg PO BID
isosorbide mononitrate 120 mg tablet extended release 24 hr
120 mg PO DAILY
atorvastatin 40 mg tablet
40 mg PO HS
Rx Instructions:
taken w/ 20mg = 60mg
prednisone 10 mg tablet
5 mg PO Q48H
cholecalciferol (vitamin D3) 50 mcg (2,000 unit) Tablet
50 mcg PO DAILY
Discharge Orders:
Discharge Patient (As Directed); Ordered 01/28/24
Ordered By: Kirt Rodriguez
Discharge Date and Time
Discharge Date/Time: 01/28/24 15:35
Print Language: DJIBOUTIAN
== END 2024-01-28 15:35 | disposition home or self-care (01) | DRG 190 ==
LOC: 4 WEST ACU 01:27
PROVIDERS: Nurse Practitioner; ADMITTING PHYSICIAN Internal Medicine; ATTENDING PHYSICIAN Internal Medicine; EMERGENCY PHYSICIAN Emergency Medicine; FAMILY PHYSICIAN Family Medicine
DX: J44.0 Chronic obstructive pulmonary disease with (acute) lower respiratory infection (principal); G93.41 Metabolic encephalopathy; J18.9 Pneumonia, unspecified organism; E87.1 Hypo-osmolality and hyponatremia; I50.32 Chronic diastolic (congestive) heart failure; Z87.891 Personal history of nicotine dependence; Z11.52 Encounter for screening for COVID-19; Z95.0 Presence of cardiac pacemaker; I11.0 Hypertensive heart disease with heart failure; E03.9 Hypothyroidism, unspecified; I25.10 Atherosclerotic heart disease of native coronary artery without angina pectoris; E87.6 Hypokalemia; Z79.82 Long term (current) use of aspirin
CPT/HCPCS: 71046; 80048; 80053; 81003; 81015; 83735; 83880; 84145; 84443; 85025; 85027; 87449; 87502; 87811; 90662; 96361; 96374; 97116; 97162; 99284; G0008

== ENCOUNTER → 2024-07-11 10:32 | Outpatient (REF) | payer OTHER, SELFPAY | LOC: HWRAD 10:32 | PROVIDERS: ATTENDING PHYSICIAN Internal Medicine Cardiovascular Disease; FAMILY PHYSICIAN Family Medicine; REFERRING PHYSICIAN Internal Medicine Critical Care Medicine | DX: R09.89 Other specified symptoms and signs involving the circulatory and respiratory systems (principal); J47.9 Bronchiectasis, uncomplicated | CPT/HCPCS: 71046; 93880 ==

== ENCOUNTER → 2024-07-22 13:39 | Outpatient (REF) | payer OTHER, SELFPAY | LOC: HWRAD 13:39 | PROVIDERS: ATTENDING PHYSICIAN Internal Medicine Critical Care Medicine; FAMILY PHYSICIAN Family Medicine | DX: J47.9 Bronchiectasis, uncomplicated (principal) | CPT/HCPCS: 71250 ==

== ENCOUNTER → 2025-01-17 13:52 | Outpatient (REF) | payer OTHER, SELFPAY | LOC: HWRCS 13:52 | PROVIDERS: ATTENDING PHYSICIAN Internal Medicine Cardiovascular Disease; FAMILY PHYSICIAN Family Medicine | DX: I35.0 Nonrheumatic aortic (valve) stenosis (principal) | CPT/HCPCS: 93306 ==